=== PATIENT | female | born 1960 | race Caucasian/White ===

== ENCOUNTER → 2020-12-26 15:44 | Outpatient (CLI) | payer SELFPAY ==
--- NOTE | ~2020-12-26 | XR_ITS ---
XR_[id number]_CR 12/26/2020 16:25 Indication: Neck pain Procedure: 3 views cervical spine Comparison: No prior studies for comparison. Findings: There is disc narrowing at C5-6 with retrolisthesis at this level. No acute fracture or tra umatic malalignment. No prevertebral soft tissue swelling. There is mild multilevel uncinate and face t hypertrophy. Lung apices are normal. Odontoid process within normal limits. There are carotid calci fications. Impression: 1: Mild-moderate cervical spondylosis. Reviewed, dictated and finalized at location A. Impression: 1: Mild-moderate cervical spondylosis.
== END ==
PROVIDERS: Visit Provider Chiropractor
DX: M47.892 Other spondylosis, cervical region (principal)
CPT/HCPCS: 72040

== ENCOUNTER 2023-09-17 13:01 | Outpatient (CLI) | payer MEDICARE, SELFPAY | END 2023-09-17 13:02 | disposition home or self-care (01) | LOC: ANHAUDIO 13:01 | PROVIDERS: Visit Provider Otolaryngology | DX: H90.3 Sensorineural hearing loss, bilateral (principal) | CPT/HCPCS: 92557; 92567 ==